=== PATIENT | male | born 2000 | race Hispanic/Latino ===

== ENCOUNTER 2022-05-06 22:42 | Emergency (ER) | payer BC, OTHER | END 2022-05-06 23:41 | disposition home or self-care (01) | LOC: ERS 22:42 | DX: L03.316 Cellulitis of umbilicus (principal); F17.290 Nicotine dependence, other tobacco product, uncomplicated ==

== ENCOUNTER 2022-08-22 09:44 | Emergency (ER) | payer BC ==
[2022-08-22] MEDS ORDERED: Dicyclomine 20 MG TAB ONE (10:34)
[2022-08-22] MEDS ORDERED: Ondansetron ODT 4 MG TAB ONE (10:34)
== END 2022-08-22 11:04 | disposition home or self-care (01) ==
LOC: ERS 09:44
DX: R11.2 Nausea with vomiting, unspecified (principal); R19.7 Diarrhea, unspecified
CPT/HCPCS: 96372; 99283; Q0162